=== PATIENT | male | born 1950 | race African-American/Black ===

== ENCOUNTER 2016-05-05 01:14 | Inpatient (IN) | payer OTHER, MEDICARE ==
[~2016-05-05] VITALS: Ht 175.3 cm; Wt 96.0 kg
[2016-05-05] VITALS (30 sets, daily range): BP systolic 125–165; BP diastolic 76–96; PULSE 58–80; RESP 16–20; TEMP 98.1–98.9; O2SAT 97–100
[~2016-05-05 01:14] MED LIST: ASPI81 PO; DAPA1TAB2 PO; GEMF600 PO; GLUCTAB PO; LANTUS2P SQ; LISI-357 PO; METF500 PO; NOVOLOGP2 SQ; OMEG100037 PO; TAB-TAB PO; VITA20003 PO
[2016-05-05] MEDS ORDERED: HEPARIN SODIUM - IV 10,000 UNITS/10 ML VIAL IV STA (01:25)
[2016-05-05] MEDS ORDERED: SODIUM CHLOR 0.9% 1000 ML INJ 1,000 ML IV ONE (01:25)
[2016-05-05] MEDS ORDERED: NITROGLYCERIN 0.4 MG SL 25 TABS/BTL SL STA (01:25)
[2016-05-05] MEDS ORDERED: ASPIRIN 81 MG CHEW TAB PO STA (01:25)
[2016-05-05] MEDS ORDERED: NITROGLYCERIN-DEXTROSE INJ 250 ML IV SCH (01:30)
[2016-05-05] MEDS ORDERED: SODIUM CHLORIDE 0.9% FLUSH 5 ML FLUSH IVF PRN (01:30)
[2016-05-05 01:38] LABS: AUTOMATED NEUTROPHIL # 4.3 TH/MM3 (1.8-7.7); BASOPHIL # 0.1 TH/MM3 (0-0.2); BASOPHIL % 0.9 % (0.0-2.0); EOSINOPHIL # 0.1 TH/MM3 (0-0.4); EOSINOPHIL % 1.4 % (0.0-4.0); HEMO FLAGS DIFF FINAL; LYMPH % 35.5 % (9.0-44.0); MEAN CELL VOLUME 82.5 FL (80.0-100.0); MEAN CORPUSCULAR HEMOGLOBIN 26.6 PG (27.0-34.0); MEAN CORPUSCULAR HGB CONC 32.3 % (32.0-36.0); MONO % 9.6 % (0.0-8.0); NEUT % 52.6 % (16.0-70.0); PLATELET COUNT 224 TH/MM3 (150-450); RED BLOOD COUNT 5.82 MIL/MM3 (4.50-5.90); RED CELL DISTRIBUTION WIDTH 13.6 % (11.6-17.2); WHITE BLOOD COUNT 8.3 TH/MM3 (4.0-11.0)
--- NOTE | 2016-05-05 01:39 | PD ---
HPI Chief Complaint: chest pain Time Seen by Provider: 01:21 Travel History International Travel<30 days: No Contact w/Intl Traveler<30days: No Traveled to known affect area: No History of Present Illness HPI The patient is a 65-year-old male with no known history of heart disease who complains of chest tightness beginning at 12 midnight tonight associated with diaphoresis and radiation to the throat. He denies any nausea, shortness of breath, syncopal or near syncopal spells. He is a [facility] patient of Dr. Antione Nunez. Apparently, he had a normal stress test a year ago. He does not smoke. He does not have any contraindications to heparin. He took a Viagra at 10 PM tonight. PFSH Past Medical History Cancer: No Cardiovascular Problems: No High Cholesterol: Yes Diabetes: Yes Endocrine: Yes Glaucoma: No Genitourinary: No Hepatitis: No Hiatal Hernia: No Hypertension: Yes Immune Disorder: No Musculoskeletal: Yes Neurologic: No Psychiatric: No Reproductive: No Respiratory: No Thyroid Disease: No Ulcer: Yes Past Surgical History Abdominal Surgery: Yes (ABDOMINAL HERNIA REPAIR) Pacemaker: No Other Surgery: Yes Social History Alcohol Use: Yes (OCC) Tobacco Use: No Substance Use: No Allergies-Medications (Allergen,Severity, Reaction): Coded Allergies: No Known Allergies (Verified , 05/05/16) Reported Meds & Prescriptions Reported Meds & Active Scripts Active Reported Fish Oil 1000 mg ([place]-3 Fatty Acids) 1 Cap Cap 1,000 Mg PO TID Vitamin D (Cholecalciferol) 2,000 Unit Tab 2,000 Unit PO DAILY Lantus (Insulin Glargine) 100 Units/Ml Inj 26 Units SQ HS Novolog (Insulin Aspart) 100 Units/ML Inj 0 SQ DIRECTED PRN Lisinopril 5 mg (Lisinopril) 5 Mg Tab 5 Mg PO DAILY Farxiga (Dapagliflozin Propanediol) 10 Mg Tab 10 Mg PO DAILY Glucophage 500 mg (Metformin HCl) 500 Mg Tab 1,000 Mg PO BID Lopid (Gemfibrozil) 600 Mg Tab 600 Mg PO BID Glucophage (Metformin HCl) 500 Mg Tab 500 Mg PO DAILY Aspirin 81 Mg Tab 81 Mg PO DAILY Multivitamin (Multivitamins) 1 Tab Tab 1 Tab PO DAILY Review of Systems Except as stated in HPI: all other systems reviewed are Neg Physical Exam Narrative GENERAL: The patient is alert, oriented 3 in moderate apparent distress with his chest tightness. His vital signs show blood pressure 151/88, the rest the vital signs are normal. SKIN: Warm and slightly diaphoretic. HEAD: Atraumatic. Normocephalic. EYES: Pupils equal and round. No scleral icterus. No injection or drainage. ENT: No nasal bleeding or discharge. Mucous membranes pink and moist. NECK: Trachea midline. No JVD. CARDIOVASCULAR: Regular rate and rhythm. No murmur appreciated. RESPIRATORY: No accessory muscle use. Clear to auscultation. Breath sounds equal bilaterally. GASTROINTESTINAL: Abdomen soft, non-tender, nondistended. Hepatic and splenic margins not palpable. MUSCULOSKELETAL: No obvious deformities. No clubbing. No cyanosis. No edema. NEUROLOGICAL: Awake and alert. No obvious cranial nerve deficits. Motor grossly within normal limits. Normal speech. PSYCHIATRIC: Appropriate mood and affect; insight and judgment normal. Data Data Orders Troponin I (05/05/16) Ckmb (Isoenzyme) Profile (05/05/16) Complete Blood Count With Diff (05/05/16) Basic Metabolic Panel (Bmp) (05/05/16:) Magnesium (Mg) (05/05/16) Calcium (05/05/16) Prothrombin Time / Inr (Pt) (05/05/16) Act Partial Throm Time (Ptt) (05/05/16:) B-Type Natriuretic Peptide (05/05/16:) Chest, Single Ap (05/05/16) Electrocardiogram (05/05/16) Oxygen Administration (05/05/16) Iv Access Insert/Monitor (05/05/16:) Oximetry (05/05/16:25) Sodium Chlor 0.9% 1000 Ml Inj (Ns 1000 M (05/05/16:25) Sodium Chloride 0.9% Flush (Ns Flush) (05/05/16 01:30) Aspirin Chew (Aspirin Chew) (05/05/16:25) Nitroglycerin Sl (Nitrostat Sl) (05/05/16:25) Heparin Inj (Heparin Inj) (2/23/17 01:25) Admit Order (Ed Use Only) (05/05/16 01:31) Admit Order (Ed Use Only) (05/05/16 01:31) Labs Laboratory Tests Test 05/05/16 01:30 White Blood Count 8.3 TH/MM3 Red Blood Count 5.82 MIL/MM3 Hemoglobin 15.5 GM/DL Hematocrit 48.0 % Mean Corpuscular Volume 82.5 FL Mean Corpuscular Hemoglobin 26.6 PG Mean Corpuscular Hemoglobin 32.3 % Concent Red Cell Distribution Width 13.6 % Platelet Count 224 TH/MM3 Mean Platelet Volume 8.4 FL Neutrophils (%) (Auto) 52.6 % Lymphocytes (%) (Auto) 35.5 % Monocytes (%) (Auto) 9.6 % Eosinophils (%) (Auto) 1.4 % Basophils (%) (Auto) 0.9 % Neutrophils # (Auto) 4.3 TH/MM3 Lymphocytes # (Auto) 3.0 TH/MM3 Monocytes # (Auto) 0.8 TH/MM3 Eosinophils # (Auto) 0.1 TH/MM3 Basophils # (Auto) 0.1 TH/MM3 CBC Comment DIFF FINAL Differential Comment Sodium Level 143 MEQ/L Potassium Level 3.3 MEQ/L Chloride Level 106 MEQ/L Carbon Dioxide Level 26.9 MEQ/L Anion Gap 10 MEQ/L Blood Urea Nitrogen 9 MG/DL Random Glucose 157 MG/DL Calcium Level 8.9 MG/DL Magnesium Level 2.2 MG/DL [facility] Medical Decision Making Medical Screen Exam Complete: Yes Emergency Medical Condition: Yes Medical Record Reviewed: Yes Interpretation(s) The EKG shows ST elevation in II, III, and F aVF as well as ST elevation in V6. Reciprocal changes are present in aVR, aVL and leads V1, V2 and V3. Differential Diagnosis Acute inferior CT day STEMI alert, pericarditisunlikely, dissecting aneurysm highly unlikely Narrative Course The patient has an acute inferior CT day STEMI alert. I STEMI alert was called and the patient is on the way to [facility]. I discussed the patient with Dr. Lex Miles. The patient is a [facility] patient. Physician Communication Physician Communication I discussed the patient with Dr. Lex Miles. The patient is going to the catheterization lab. Diagnosis Primary Impression: Acute inferior myocardial infarction Admitting Information Admitting Physician Requests: Admit Leno Muller MD May 05, 2016 01:39
--- NOTE | 2016-05-05 01:43 | RADHPO ---
EXAM DATE/TIME: 05/05/2016 01:30 [place] COMPARISON: CHEST SINGLE AP, February 17, 2015, 14:04. INDICATIONS : Chest pain. MEDICAL HISTORY : Hypertension. Hypercholesterolemia. SURGICAL HISTORY : None. ENCOUNTER: Initial ACUITY: 1 day PAIN SCORE: 8/10 LOCATION: Bilateral chest FINDINGS: A single view of the chest demonstrates the lungs to be symmetrically aerated without evidence of mas s, infiltrate or effusion. The cardiomediastinal contours are unremarkable. Osseous structures are intact. CONCLUSION: No acute disease. Juan Butterfield MD on May 05, 2016 at 1:42 Board Certified Radiologist. This report was verified electronically.
[2016-05-05 01:44] LABS: CHLORIDE 106 MEQ/L (98-107); POTASSIUM 3.3 MEQ/L (3.5-5.1); SODIUM (NA) 143 MEQ/L (136-145)
[2016-05-05 01:47] LABS: ANION GAP 10 MEQ/L (5-15); BICARBONATE 26.9 MEQ/L (21.0-32.0); BLOOD UREA NITROGEN 9 MG/DL (7-18); MAGNESIUM 2.2 MG/DL (1.5-2.5)
[2016-05-05 01:50] LABS: APTT (PATIENT) 25.9 SEC (24.3-30.1); GLOMERULAR FILTRATION RATE 81 ML/MIN (>89); INTERNATIONAL NORMALIZED RATIO 0.9 RATIO; PROTHROMBIN TIME - PATIENT 10.2 SEC (9.8-11.6)
[2016-05-05 01:53] LABS: CREATINE KINASE 210 U/L (39-308)
[2016-05-05 02:06] LABS: CKMB 1.4 NG/ML (0.5-3.6)
[2016-05-05] MEDS ORDERED: HEPARIN SODIUM - IV 10,000 UNITS/10 ML VIAL ONE (02:33)
[2016-05-05] MEDS ORDERED: CLOPIDOGREL 300 MG TAB ONE (02:43)
--- NOTE | 2016-05-05 06:34 | MA ---
cc: LEX MILES MD DATE 05/05/2016 PROCEDURE PERFORMED Cardiac catheterization PROCEDURE The patient was prepped and draped in the usual fashion. A 6 sheath was inserted percutaneously into the right femoral artery. Coronary angiography was done with Randee preformed catheters. Left ventriculography was done with a pigtail catheter. RESULTS Aortic pressure was 131/64. Left ventricular end-diastolic pressure was 6. CORONARY ARTERIOGRAPHY The left main coronary artery was normal. The left anterior descending artery was essentially normal throughout its course. It gave off a fairly large first diagonal branch which is also normal. The left circumflex artery descended in the AV groove. Just prior to the takeoff of a large obtuse marginal branch, a high-grade stenosis of approximately 90% was present. The first obtuse marginal demonstrated a mild stenosis of approximately 30-40% and the distal portion of the artery was normal. The right coronary was essentially normal throughout its course. It was anatomically dominant with no significant stenoses seen. LEFT VENTRICULOGRAM The left ventriculography demonstrated normal left ventricular size and function. No regional wall motion abnormality was appreciated. Overall ejection fraction was estimated at 60%. INTERVENTION Following consent, an a ACT was drawn which was 212. An additional 1000 units of heparin was administered with subsequent ACT of 283 seconds. A XB 3.5 guide was used to cannulate the left main. A TARGET BRAZILwater wire was advanced into the distal left circumflex and primary stenting was accomplished with a 3.0 x 15-mm drug-eluting stent with post-dilatation to 12 atmospheres. This resulted in a very good cosmetic result with essentially 0 residual. [place]-3 flow was present both pre and post procedure. The sheath was sutured into place and 600 mg of Plavix was administered orally. CONCLUSIONS Successful PTCA and stenting of mid-circumflex artery. Lex Miles MD DLW/SSB /2:57 AM /6:16 AM
[2016-05-05] MEDS: POTASSIUM CHLORIDE 10 MEQ CAP PO SCH ×2 (08:57→20:37)
--- NOTE | 2016-05-05 09:06 | MH ---
cc: IGNACIA DUEÑAS MD DATE OF ADMISSION: 05/05/2016 HISTORY OF PRESENT ILLNESS This is a 65-year-old gentleman was admitted to the hospital with essentially chest discomfort. He actually describes this as just feeling poorly. Upon arrival to the hospital an EKG was done and he was found to have ST segment elevation in leads II, III and aVF. No diaphoresis, nausea or shortness of breath has been present. At the present time he is not feeling well but is in no acute distress and no significant chest discomfort is present. No prior history of heart disease has been present. He was seen in the hospital in 2014 for questionable TIA. At that point in time his work-up was essentially unremarkable. PAST MEDICAL HISTORY Significant only for type 2 diabetes for which he takes metformin, Farxiga and Lantus insulin. There is no history of hypertension or hyperlipidemia. SOCIAL HISTORY He is a non-smoker. ALLERGIES None. PHYSICAL EXAMINATION GENERAL: He is awake and alert. NECK: There is no neck vein distention. LUNGS: Clear. CARDIOVASCULAR: Regular rate and rhythm. No murmur or gallop noted. EXTREMITIES: No edema. ASSESSMENT AND PLAN The patient has evidence for acute inferior [place]. Will plan emergency cardiac catheterization for further evaluation. MD MARK Delgado/TRISHA /2:18 AM /8:57 AM
[2016-05-05] MEDS ORDERED: IOHEXOL 350 MG/ML 50 ML BTL (for Cath Lab) OTHER ONE (09:53)
[2016-05-05] MEDS ORDERED: IOHEXOL 350 MG/ML 100 ML BTL (for Cath Lab) OTHER ONE (09:53)
--- NOTE | 2016-05-05 10:24 | PD.CONS ---
HPI Service CP Hospitalists Consult Requested By Primary Care Physician Antione Nunez MD Diagnoses: History of Present Illness Pt is 65 yo male with dm presenting with chest tightness/heaviness. Has st elevations inferiorly. Taken to cath laboratory technician and had masha placed left cx. Now pt doing well and moved to [facility]. denies cp or sob now. last bg 118. to bring home meds list. Review of Systems Other chest heaviness Past Family Social History Past Medical History dm 2 htn Hyperlipidemia Osteoarthritis Cataracts Hernia repair Left knee arthroscopy Reported Medications lantus 26 units hs metformin 1000mg/500mg/1000mg Farxiga 10mg daily novology 10u/8u/12u Allergies: Coded Allergies: No Known Allergies (Verified , 05/05/16) Family History Father in his 40's from some type of cancer Mother in her 90's, she had Atrial fibrillation 3 brothers, two are , one from complications related to atrial fibrillation and the other from Mesothelioma 3 sister, one is from breast cancer, one other sister has MS Social History no etoh/tob Physical Exam Vital Signs heent neg heart reg lung cta abd s/nt ext no edema Vital Signs Date Time Temp Pulse Resp B/P Pulse Ox O2 Delivery O2 Flow Rate FiO2 05/05/16 10:00 64 05/05/16 09:37 98.1 66 18 157/90 100 05/05/16 09:37 100 Room Air 05/05/16 09:30 64 05/05/16 09:00 66 05/05/16 08:00 64 05/05/16 07:00 98 Nasal Cannula 2.00 05/05/16 07:00 98.9 66 20 153/92 98 Arterial Line 05/05/16 06:00 67 05/05/16 05:00 65 05/05/16 04:00 66 05/05/16 04:00 97 Nasal Cannula 2.00 05/05/16 03:56 97 Nasal Cannula 2.00 05/05/16 03:15 66 05/05/16 03:15 96 Nasal Cannula 2.00 05/05/16 03:15 98.6 68 20 147/86 98 165/78 05/05/16 01:42 78 129/76 98 Nasal Cannula 2 05/05/16 01:38 80 151/79 Nasal Cannula 2 05/05/16 01:29 73 153/86 97 Nasal Cannula 2 05/05/16 01:20 Nasal Cannula 2 05/05/16 01:15 98.1 70 16 151/88 98 05/05/16 01:15 70 Laboratory Laboratory Tests Test 05/05/16 01:30 White Blood Count 8.3 Red Blood Count 5.82 Hemoglobin 15.5 Hematocrit 48.0 Mean Corpuscular Volume 82.5 Mean Corpuscular Hemoglobin 26.6 Mean Corpuscular Hemoglobin 32.3 Concent Red Cell Distribution Width 13.6 Platelet Count 224 Mean Platelet Volume 8.4 Neutrophils (%) (Auto) 52.6 Lymphocytes (%) (Auto) 35.5 Monocytes (%) (Auto) 9.6 Eosinophils (%) (Auto) 1.4 Basophils (%) (Auto) 0.9 Neutrophils # (Auto) 4.3 Lymphocytes # (Auto) 3.0 Monocytes # (Auto) 0.8 Eosinophils # (Auto) 0.1 Basophils # (Auto) 0.1 CBC Comment DIFF FINAL Differential Comment Prothrombin Time 10.2 Prothromb Time International 0.9 Ratio Activated Partial 25.9 Thromboplast Time Sodium Level 143 Potassium Level 3.3 Chloride Level 106 Carbon Dioxide Level 26.9 Anion Gap 10 Blood Urea Nitrogen 9 Creatinine 1.10 Estimat Glomerular Filtration 81 Rate Random Glucose 157 Calcium Level 8.9 Magnesium Level 2.2 Total Creatine Kinase 210 Creatine Kinase MB 1.4 Troponin I LESS THAN 0.02 B-Type Natriuretic Peptide 5 Result Diagram: 05/05/1612905/05/16129 Assessment and Plan Problem List: (1) Acute inferior myocardial infarction Status: Acute Plan: Pt presented with chest heaviness found to have AMI inferior MASHA to left cx cardiac meds per Dr Miles SSI. hold other dm meds for now but resume basal insulin if necessary. plan to resume all home meds as dc to bring home meds list replace kcl. repeat labs pending. plan for d/c tomorrow. (2) Diabetes mellitus type 2, insulin dependent Status: Chronic Plan: SSI for now hold metformin/farxiga resume lantus or levemir if needed. Randy Terrell MD May 05, 2016 10:24
[2016-05-05 10:58] LABS: WHITE BLOOD COUNT 9.7 TH/MM3 (4.0-11.0)
[2016-05-05 10:59] LABS: BASOPHIL % 0.2 % (0.0-2.0); EOSINOPHIL % 0.1 % (0.0-4.0); HEMATOCRIT 47.4 % (39.0-51.0); HEMO FLAGS DIFF FINAL; LYMPH % 9.6 % (9.0-44.0); LYMPHOCYTE # 0.9 TH/MM3 (1.0-4.8); MEAN CELL VOLUME 82.9 FL (80.0-100.0); MEAN CORPUSCULAR HEMOGLOBIN 27.5 PG (27.0-34.0); MEAN CORPUSCULAR HGB CONC 33.2 % (32.0-36.0); MONO % 7.3 % (0.0-8.0); NEUT % 82.8 % (16.0-70.0); PLATELET COUNT 207 TH/MM3 (150-450); RED BLOOD COUNT 5.72 MIL/MM3 (4.50-5.90); RED CELL DISTRIBUTION WIDTH 14.7 % (11.6-17.2)
[2016-05-05] MEDS: INSULIN ASPART SUPPLEMENTAL SCALE SQ SCH ×3 (11:00→20:38)
[2016-05-05 11:31] LABS: BICARBONATE 24.6 MEQ/L (21.0-32.0)
[2016-05-05 11:34] LABS: HDL CHOLESTEROL 49.3 MG/DL (40.0-60.0)
[2016-05-05] MEDS ORDERED: PRAV10TA PO (14:02)
--- NOTE | 2016-05-05 18:58 | EKG ---
Date Performed: 05/05/2016 Time Performed: 08:25:34 PTAGE: 65 years EKG: Sinus rhythm Possible left anterior fascicular block Left ventricular hypertrophy Inferior T wave changes are non specific Abnormal ECG PREVIOUS TRACING : 05/05/2016 01.17 Compared to the previous tracing, ST changes have resolved DOCTOR: Freedom Campbell Interpretating Date/Time 05/05/2016 18:57:49
--- NOTE | 2016-05-05 19:45 | EKG ---
Date Performed: 05/05/2016 Time Performed: 01:17:44 PTAGE: 65 years EKG: CONSIDER ACUTE ST ELEVATION MT Sinus rhythm Poor R wave progression - probable normal variant Inferior ST elevation, ACUTE INFARCT Marked precor dial ST depression, ACUTE INFARCT Anteroseptal ST changes suggest myocardial injury/ischemia Abnormal ECG PREVIOUS TRACING : 02/17/2015 20.39 Compared to the previous tracing, ST changes are new DOCTOR: Freedom Campbell Interpretating Date/Time 05/05/2016 19:43:58
[2016-05-05] MEDS: METOPROLOL TARTRATE 25 MG TAB PO SCH (20:38)
[2016-05-05] MEDS ORDERED: ATORVASTATIN 80 MG TAB PO SCH (21:00)
[2016-05-06] VITALS (8 sets, daily range): BP systolic 105–118; BP diastolic 68–74; PULSE 58–68; RESP 18; TEMP 97.8–98; O2SAT 98–99
[2016-05-06] MEDS: INSULIN ASPART SUPPLEMENTAL SCALE SQ SCH (07:00)
--- NOTE | 2016-05-06 07:38 | PD.CARD.PN ---
Subjective Subjective Remarks denies chest pain Objective Vital Signs / I&O Vital Signs Date Time Temp Pulse Resp B/P Pulse Ox O2 Delivery O2 Flow Rate FiO2 05/06/16 04:00 97.8 60 18 105/68 99 05/06/16 04:00 60 05/06/16 03:59 99 Room Air 05/06/16 03:00 60 05/06/16 02:00 58 05/06/16 01:00 58 05/06/16 00:00 60 05/05/16 23:25 98.4 58 18 125/88 99 05/05/16 23:00 59 05/05/16 22:00 68 05/05/16 21:00 64 05/05/16 20:00 70 05/05/16 19:10 98.4 68 18 146/91 99 05/05/16 19:10 99 Room Air 05/05/16 19:00 69 05/05/16 18:00 72 05/05/16 17:00 69 05/05/16 16:00 70 05/05/16 15:00 98.9 70 18 148/96 99 05/05/16 15:00 98 Room Air 05/05/16 15:00 68 05/05/16 14:00 68 05/05/16 13:00 64 05/05/16 12:00 66 05/05/16 11:00 98 Room Air 05/05/16 11:00 98.1 66 18 145/92 98 05/05/16 11:00 70 05/05/16 10:00 64 05/05/16 09:37 98.1 66 18 157/90 100 05/05/16 09:37 100 Room Air 05/05/16 09:30 64 05/05/16 09:00 66 05/05/16 08:00 64 I/O 05/05/16 05/05/16 05/05/16 05/06/16 05/06/16 05/06/16 07:00 15:00 23:00 07:00 15:00 23:00 Intake Total 620 ml 480 ml Output Total 550 ml 575 ml 600 ml Balance 70 ml -95 ml -600 ml Intake Oral 120 ml 480 ml IV Total 500 ml Output Urine Total 550 ml 575 ml 600 ml # Voids 2 # Bowel Movements 0 0 Physical Exam GENERAL: Well-nourished, well-developed patient in no apparent distress. NECK: No JVD. No carotid bruit. CARDIOVASCULAR: Regular rate and rhythm. S1/S2 no murmur, rub, or gallop. RESPIRATORY: No accessory muscle use. Clear to auscultation. Breath sounds equal bilaterally. GASTROINTESTINAL: Abdomen soft, non-tender, nondistended. MUSCULOSKELETAL: Extremities without clubbing, cyanosis, or edema. right groin clean, dry and intact, 2+ femoral pulse Laboratory Laboratory Tests Test 05/05/16 10:28 White Blood Count 9.7 TH/MM3 Red Blood Count 5.72 MIL/MM3 Hemoglobin 15.7 GM/DL Hematocrit 47.4 % Mean Corpuscular Volume 82.9 FL Mean Corpuscular Hemoglobin 27.5 PG Mean Corpuscular Hemoglobin 33.2 % Concent Red Cell Distribution Width 14.7 % Platelet Count 207 TH/MM3 Mean Platelet Volume 8.9 FL Neutrophils (%) (Auto) 82.8 % Lymphocytes (%) (Auto) 9.6 % Monocytes (%) (Auto) 7.3 % Eosinophils (%) (Auto) 0.1 % Basophils (%) (Auto) 0.2 % Neutrophils # (Auto) 8.0 TH/MM3 Lymphocytes # (Auto) 0.9 TH/MM3 Monocytes # (Auto) 0.7 TH/MM3 Eosinophils # (Auto) 0.0 TH/MM3 Basophils # (Auto) 0.0 TH/MM3 CBC Comment DIFF FINAL Differential Comment Sodium Level 139 MEQ/L Potassium Level 4.0 MEQ/L Chloride Level 107 MEQ/L Carbon Dioxide Level 24.6 MEQ/L Anion Gap 7 MEQ/L Blood Urea Nitrogen 9 MG/DL Creatinine 0.78 MG/DL Estimat Glomerular Filtration 121 ML/MIN Rate Random Glucose 118 MG/DL Calcium Level 8.2 MG/DL Troponin I 35.90 NG/ML Triglycerides Level 80 MG/DL Cholesterol Level 100 MG/DL LDL Cholesterol 35 MG/DL HDL Cholesterol 49.3 MG/DL Cholesterol/HDL Ratio 2.02 RATIO Assessment and Plan Problem List: (1) Acute inferior myocardial infarction (2) Hyperlipidemia Assessment and Plan CAD s/p PCI GABRIELE mid LCX on good medical regimen TRUDY-I, BB, ASA, statin and Plavix hyperlipidemia as above f/u in our clinic in one week Sanjiv Munoz May 06, 2016 07:38
--- NOTE | 2016-05-06 08:19 | HHI.PR ---
Subjective Remarks want to go home nervous to take lisinipril. Objective Vitals heart reg lung cta abd s/nt ext no edema Vital Signs Date Time Temp Pulse Resp B/P Pulse Ox O2 Delivery O2 Flow Rate FiO2 05/06/16 04:00 97.8 60 18 105/68 99 05/06/16 04:00 60 05/06/16 03:59 99 Room Air 05/06/16 03:00 60 05/06/16 02:00 58 05/06/16 01:00 58 05/06/16 00:00 60 05/05/16 23:25 98.4 58 18 125/88 99 05/05/16 23:00 59 05/05/16 22:00 68 05/05/16 21:00 64 05/05/16 20:00 70 05/05/16 19:10 98.4 68 18 146/91 99 05/05/16 19:10 99 Room Air 05/05/16 19:00 69 05/05/16 18:00 72 05/05/16 17:00 69 05/05/16 16:00 70 05/05/16 15:00 98.9 70 18 148/96 99 05/05/16 15:00 98 Room Air 05/05/16 15:00 68 05/05/16 14:00 68 05/05/16 13:00 64 05/05/16 12:00 66 05/05/16 11:00 98 Room Air 05/05/16 11:00 98.1 66 18 145/92 98 05/05/16 11:00 70 05/05/16 10:00 64 05/05/16 09:37 98.1 66 18 157/90 100 05/05/16 09:37 100 Room Air 05/05/16 09:30 64 05/05/16 09:00 66 05/05/16 05/05/16 05/06/16 15:00 23:00 07:00 Intake Total 480 ml Output Total 575 ml 600 ml Balance -95 ml -600 ml Intake Oral 480 ml Output Urine Total 575 ml 600 ml # Bowel Movements 0 Result Diagram: 05/05/16 1028 05/05/16 1028 A/P Problem List: (1) Acute inferior myocardial infarction Status: Acute Plan: Pt presented with chest heaviness found to have AMI inferior GABRIELE to left cx d/c today asa/plavix/statin/bb pt says genaro caused low bp in past and nervous to take. f/u 1 week. take bp's at home.] addendum. cardiology ok with hold on genaro. also requested hold statin due to low ldl. (2) Diabetes mellitus type 2, insulin dependent Status: Chronic Plan: resume home meds on d/c Randy Terrell MD May 06, 2016 08:19
[2016-05-06] MEDS ORDERED: ASPI325T PO (08:20)
[2016-05-06] MEDS ORDERED: LIPI80TA PO (08:20)
[2016-05-06] MEDS ORDERED: METO25TA3 PO (08:20)
[2016-05-06] MEDS ORDERED: PLAV75TA29 PO (08:20)
--- NOTE | 2016-05-06 08:21 | HHI.DCPOC ---
Discharge Care Plan Diagnosis: (1) Acute inferior myocardial infarction Goals to Promote Your Health * To prevent worsening of your condition and complications * To maintain your health at the optimal level Directions to Meet Your Goals Take your medications as prescribed Follow your dietary instruction Follow activity as directed Keep your appointments as scheduled Take your immunizations and boosters as scheduled If your symptoms worsen call your PCP, if no PCP go to Urgent Care Center or Emergency Room Smoking is Dangerous to Your Health. Avoid second hand smoke Call the 24-hour hour crisis hotline for domestic abuse at Randy Terrell MD May 06, 2016 08:21
[2016-05-06] MEDS ORDERED: CLOPIDOGREL 75 MG TAB PO SCH (09:00)
[2016-05-06] MEDS ORDERED: LISINOPRIL 5 MG TAB PO SCH (09:00)
[2016-05-06] MEDS ORDERED: ASPIRIN 325 MG TAB PO SCH (09:00)
[2016-05-06] MEDS: POTASSIUM CHLORIDE 10 MEQ CAP PO SCH (09:36)
[2016-05-06] MEDS: METOPROLOL TARTRATE 25 MG TAB PO SCH (09:37)
== END 2016-05-06 10:44 | disposition home or self-care (01) | DRG 247 ==
LOC: PHED 01:14 → PHEDA 01:35 → HCVR 03:19 → HCIS 09:31
PROVIDERS: ADMIT Internal Medicine Cardiovascular Disease; ATTEND Internal Medicine Cardiovascular Disease
PROC: 027034Z Dilation of Coronary Artery, One Artery with Drug-eluting Intraluminal Device, Percutaneous Approach (ICD-10-PCS; principal; 2016-05-05)
PROC: 4A023N7 Measurement of Cardiac Sampling and Pressure, Left Heart, Percutaneous Approach (ICD-10-PCS; 2016-05-05)
PROC: B2111ZZ Fluoroscopy of Multiple Coronary Arteries using Low Osmolar Contrast (ICD-10-PCS; 2016-05-05)
PROC: B2151ZZ Fluoroscopy of Left Heart using Low Osmolar Contrast (ICD-10-PCS; 2016-05-05)
DX: I21.19 ST elevation (STEMI) myocardial infarction involving other coronary artery of inferior wall (principal); I10 Essential (primary) hypertension; I25.10 Atherosclerotic heart disease of native coronary artery without angina pectoris; E11.9 Type 2 diabetes mellitus without complications; Z79.4 Long term (current) use of insulin; E78.5 Hyperlipidemia, unspecified; M19.90 Unspecified osteoarthritis, unspecified site; H26.9 Unspecified cataract
CPT/HCPCS: 71010; 80048; 80061; 82550; 82552; 83735; 83880; 84484; 85002; 85025; 85347; 85610; 85730; 92941; 93005; 93458; 96374; C1769; C1874; C1887; C1893; J1644; J1815; J7030; Q9967